=== PATIENT | female | born 1980 | race Native Hawaiian/Other Pacific Islander ===

== ENCOUNTER 2016-06-27 00:16 | Emergency (ER) | payer SELFPAY ==
[2016-06-27 00:56] LABS: Basophils % (Auto) 0.8 % (0.0-1.8); Hematocrit 34.7 % (30.3-42.9); Hemoglobin 11.7 gm/dl (10.1-14.3); Mean Corpuscular HGB Conc 34 % (30-34); Mean Corpuscular Hemoglobin 30 pg (28-32); Mean Corpuscular Volume 89 fl (79-97); Platelet Count 263 K/mm3 (140-440); Red Blood Count 3.89 M/mm3 (3.65-5.03); Red Cell Distribution Width 12.2 % (13.2-15.2); White Blood Count 8.7 K/mm3 (4.5-11.0)
--- NOTE | 2016-06-27 02:38 | Ultrasound Report ---
FINAL REPORT EXAM: US OB TRANSVAGINAL HISTORY: vag bleeding hcg TECHNIQUE: Real time transabdominal and transvaginal pelvic ultrasound. Initially, transabdominal scanning was performed. Subsequently, transvaginal scanning was performed to better evaluate the uterus and ovaries. PRIORS: None FINDINGS: Uterus measures 12 x 7.3 x 9.1 cm. No intrauterine gestation identified. Endometrium is thickened measuring 4.2 cm in maximal thickness. Diffusely heterogeneous appearing endometrium, with numerous cystic foci throughout. Endometrium not particularly vascular. The ovaries cannot be seen. No free fluid. Nabothian cyst noted in the cervix. IMPRESSION: 1. Findings are most suggestive of gestational trophoblastic disease (molar ).
--- NOTE | 2016-06-27 02:38 | Ultrasound Report ---
FINAL REPORT EXAM: US OB < = 14 WEEKS FETUS HISTORY: vag bleeding hcg TECHNIQUE: Real time transabdominal and transvaginal pelvic ultrasound. Initially, transabdominal scanning was performed. Subsequently, transvaginal scanning was performed to better evaluate the uterus and ovaries. PRIORS: None FINDINGS: Uterus measures 12 x 7.3 x 9.1 cm. No intrauterine gestation identified. Endometrium is thickened measuring 4.2 cm in maximal thickness. Diffusely heterogeneous appearing endometrium, with numerous cystic foci throughout. Endometrium not particularly vascular. The ovaries cannot be seen. No free fluid. Nabothian cyst noted in the cervix. IMPRESSION: 1. Findings are most suggestive of gestational trophoblastic disease (molar ).
[2016-06-27] MEDS ORDERED: NORCO 5/325 PO ONE (02:46)
--- NOTE | 2016-06-27 02:49 | Emergency Department Report ---
ED HPI - General Chief complaint: Vaginal Bleeding Stated complaint: VAGINAL BLEEDING Time Seen by Provider: 06/27/16 00:45 Source: patient, old records reviewed (first ED visit) Mode of arrival: Wheelchair Limitations: No Limitations, Language Barrier - History of Present Illness Initial comments: 35 year old female with no significant past medical history presents to the hospital complains of vaginal bleeding that started 30 minutes prior to arrival. Positive associated 10/10 lower crampy abdominal pain that is intermittent. Patient reports that she was diagnosed with a molar had a D&C 1 month ago. Despite this her hCG levels continue to trend upward. She last saw her [employer]ILER doctor on June 22 and was told that she will likely need additional treatment since levels are not decreasing. She is unsure what the treatment was. She was told to come to the ER if symptoms worsened. Patient sees a nurse practitioner associated with Dr. Yoni Ramos - Related Data Previous Rx's Medication Instructions Recorded Last Taken Type HYDROcodone/APAP 5-325 [[place] 1 each PO Q6HR PRN #20 tablet 06/27/16 Unknown Rx 5/325] Promethazine [Phenergan TAB] 25 mg PO Q6HR PRN #30 tab 06/27/16 Unknown Rx Allergies Allergy/AdvReac Type Severity Reaction Status Date / Time No Known Allergies Allergy Verified 06/27/16 00:38 ED Review of Systems ROS: Stated complaint: VAGINAL BLEEDING Other details as noted in HPI Comment: All other systems reviewed and negative Other: Constitutional: No fevers chills or weight loss Eyes: No eye pain visual changes or discharge ENT: No ear pain or throat pain Neck: Denies pain Respiratory: Denies cough wheezing shortness of breath Cardiovascular: Denies chest pain, palpitations, syncope GI: As per HPI : Vaginal bleeding Musculoskeletal: Denies back pain Skin: Denies rash, lesions, erythema Neurologic: Denies headache, numbness, weakness Psychiatric: Denies suicidal ideation, hallucinations Hematological/lymphatic: Denies easy bruising, lymphadenopathy ED Past Medical Hx - Past Medical History Previous Medical History?: No - Surgical History Past Surgical History?: Yes Additional Surgical History: D&C X 4 weeks now here in [facility] - Social History Smoking Status: Never Smoker Substance Use Type: None - Medications Home Medications: Home Medications Medication Instructions Recorded Confirmed Last Taken Type HYDROcodone/APAP 5-325 [[place] 1 each PO Q6HR PRN #20 tablet 06/27/16 Unknown Rx 5/325] Promethazine [Phenergan TAB] 25 mg PO Q6HR PRN #30 tab 06/27/16 Unknown Rx ED Physical Exam - General Limitations: No Limitations, Language Barrier - Other Other exam information: General: No limitations, patient is alert in no acute distress Head exam: Atraumatic, normocephalic Eyes exam: Normal appearance, pupils equal reactive to light, extraocular movements intact ENT: Moist mucous membrane, normal oropharynx Neck exam: Normal inspection, full range of motion, no meningismus nontender Respiratory exam: Clear to auscultation bilateral, no wheezes, rales, crackles Cardiovascular: Normal rate and rhythm, normal heart sounds Abdomen: Soft, nondistended, suprapubic tenderness, with normal bowel sounds, no rebound, or guarding : Moderate blood in the vault, os closed, mild uterine tenderness Extremity: Full range of motion normal inspection no deformity Back: Normal Inspection, full range of motion, no tenderness Neurologic: Alert, oriented x3, cranial nerves intact, no motor or sensory deficit Psychiatric: normal affect, normal mood Skin: Warm, dry, intact ED Course Vital Signs 06/27/16 06/27/16 06/27/16 00:19 01:20 01:30 Temperature 98.1 F Pulse Rate 68 62 67 Respiratory 18 20 22 Rate Blood Pressure 129/74 114/67 Blood Pressure [Left] Blood Pressure 129/74 [Right] O2 Sat by Pulse 99 97 Oximetry 06/27/16 06/27/16 06/27/16 01:31 01:33 01:40 Temperature 98.2 F Pulse Rate 66 68 Respiratory 18 18 24 Rate Blood Pressure 113/62 Blood Pressure 113/62 [Left] Blood Pressure [Right] O2 Sat by Pulse 99 99 100 Oximetry 06/27/16 06/27/16 06/27/16 01:50 01:57 05:32 Temperature Pulse Rate 66 Respiratory 18 18 21 Rate Blood Pressure 113/62 113/62 Blood Pressure [Left] Blood Pressure [Right] O2 Sat by Pulse 100 100 Oximetry 06/27/16 05:34 Temperature Pulse Rate 67 Respiratory 23 Rate Blood Pressure 98/52 Blood Pressure [Left] Blood Pressure [Right] O2 Sat by Pulse 98 Oximetry - Reevaluation(s) Reevaluation #1: 06/27/16 05:19 Patient reports that pain improved with Luttrell and Zofran. - Consultations Consultation #1: 06/27/16 05:17 Dr. Yoni Ramos service paged at 2:48. After 1 hour of no response I paged Dr. Matta director of food and nutrition services for [facility] [employer]. Apparently Dr. Leandra Ramos is director of food and nutrition services and has been in surgery. I received call back from Dr Gianni Ramos at 5:05 AM. Still awaiting disposition planning regarding this patient. 06/27/16 05:18 Consultation #2: 06/27/16 05:40 received call back, f/u in office today to schedule surgery ED Medical Decision Making - Lab Data Result diagrams: 06/27/16 00:44 Lab Results 06/27/16 06/27/16 06/27/16 Range/Units 00:44 00:44 00:44 WBC 8.7 (4.5-11.0) K/mm3 RBC 3.89 (3.65-5.03) M/mm3 Hgb 11.7 (10.1-14.3) gm/dl Hct 34.7 (30.3-42.9) % MCV 89 (79-97) fl MCH 30 (28-32) pg MCHC 34 (30-34) % RDW 12.2 L (13.2-15.2) % Plt Count 263 (140-440) K/mm3 Lymph % (Auto) 27.3 (13.4-35.0) % [place] % (Auto) 5.8 (0.0-7.3) % Eos % (Auto) 3.0 (0.0-4.3) % Baso % (Auto) 0.8 (0.0-1.8) % Lymph # 2.4 (1.2-5.4) K/mm3 [place] # 0.5 (0.0-0.8) K/mm3 Eos # 0.3 (0.0-0.4) K/mm3 Baso # 0.1 (0.0-0.1) K/mm3 Seg Neutrophils % 63.1 (40.0-70.0) % Seg Neutrophils # 5.5 (1.8-7.7) K/mm3 HCG, Quant 328815 H (0-4) mIU/mL Urine Color (Yellow) Urine Turbidity (Clear) Urine pH (5.0-7.0) Ur Specific [place] (1.003-1.030) Urine Protein (Negative) mg/dL Urine Glucose (UA) (Negative) mg/dL Urine Ketones (Negative) mg/dL Urine Blood (Negative) Urine Nitrite (Negative) Urine Bilirubin (Negative) Urine Urobilinogen (<2.0) mg/dL Ur Leukocyte Esterase (Negative) Urine WBC (Auto) (0.0-6.0) /HPF Urine RBC (Auto) (0.0-6.0) /HPF U Epithel Cells (Auto) (0-13.0) /HPF Urine Bacteria (Auto) (Negative) /HPF Blood Type O POSITIVE Antibody Screen Negative 06/27/16 Range/Units Unknown WBC (4.5-11.0) K/mm3 RBC (3.65-5.03) M/mm3 Hgb (10.1-14.3) gm/dl Hct (30.3-42.9) % MCV (79-97) fl MCH (28-32) pg MCHC (30-34) % RDW (13.2-15.2) % Plt Count (140-440) K/mm3 Lymph % (Auto) (13.4-35.0) % [place] % (Auto) (0.0-7.3) % Eos % (Auto) (0.0-4.3) % Baso % (Auto) (0.0-1.8) % Lymph # (1.2-5.4) K/mm3 [place] # (0.0-0.8) K/mm3 Eos # (0.0-0.4) K/mm3 Baso # (0.0-0.1) K/mm3 Seg Neutrophils % (40.0-70.0) % Seg Neutrophils # (1.8-7.7) K/mm3 HCG, Quant (0-4) mIU/mL Urine Color Straw (Yellow) Urine Turbidity Clear (Clear) Urine pH 6.0 (5.0-7.0) Ur Specific [place] 1.008 (1.003-1.030) Urine Protein <15 mg/dl (Negative) mg/dL Urine Glucose (UA) Neg (Negative) mg/dL Urine Ketones Neg (Negative) mg/dL Urine Blood Lg (Negative) Urine Nitrite Neg (Negative) Urine Bilirubin Neg (Negative) Urine Urobilinogen < 2.0 (<2.0) mg/dL Ur Leukocyte Esterase Tr (Negative) Urine WBC (Auto) 2.0 (0.0-6.0) /HPF Urine RBC (Auto) 11.0 (0.0-6.0) /HPF U Epithel Cells (Auto) < 1.0 (0-13.0) /HPF Urine Bacteria (Auto) 1+ (Negative) /HPF Blood Type Antibody Screen wet prep neg - Radiology Data Radiology results: report reviewed Transvaginal/pelvic ultrasound: Gestational trophoblastic disease (molar ) - Differential Diagnosis persistent molar , anemia Critical Care Time: No Critical care attestation.: If time is entered above; I have spent that time in minutes in the direct care of this critically ill patient, excluding procedure time. ED Disposition Clinical Impression: Molar Disposition: DISCHARGED TO HOME OR SELFCARE Is pt being admited?: No Does the pt Need Aspirin: No Condition: Stable Instructions: Menorrhagia (ED) Additional Instructions: Realice el seguimiento esta maana con jasmine mdico gineclogo para programar la ciruga para jasmine embarazo molar. Regresar si el sntoma empeora. Prescriptions: HYDROcodone/APAP 5-325 [Luttrell 5/325] 1 each PO Q6HR PRN #20 tablet PRN Reason: Pain Promethazine [Phenergan TAB] 25 mg PO Q6HR PRN #30 tab PRN Reason: Nausea Referrals: PUMA TILLEY MD [Staff Physician] - MACK ([facility]) Time of Disposition: 06:07 Print Language: MALIAN
[2016-06-27] MEDS ORDERED: ZOFRAN ODT PO ONE (03:04)
[2016-06-27 03:22] LABS: Bacteria,Urine 1+ /HPF (Negative); Bilirubin,Urine NEG (Negative); Blood,Urine LG (Negative); Ketones,Urine NEG (Negative); Leukocyte Esterase,Urine TR (Negative); Nitrite,Urine NEG (Negative); Protein,Urine <15 mg/dL mg/dL (Negative); Urobilinogen,Urine < 2.0 mg/dL (<2.0)
[2016-06-27 06:38] VITALS: BP 106/55
== END 2016-06-27 06:45 | disposition home or self-care (01) ==
LOC: ED 00:16
DX: O02.0 Blighted ovum and nonhydatidiform mole (principal); Z3A.00 Weeks of gestation of pregnancy not specified
CPT/HCPCS: 36415; 76801; 76817; 81001; 84702; 85025; 86850; 86900; 86901; 87210; 87591; Q0162

== ENCOUNTER 2016-07-12 05:50 | Emergency (ER) | payer SELFPAY ==
[2016-07-12 06:27] LABS: Hemoglobin 10.5 gm/dl (10.1-14.3); Mean Corpuscular HGB Conc 34 % (30-34); Mean Corpuscular Hemoglobin 29 pg (28-32); Mean Corpuscular Volume 87 fl (79-97); Platelet Count 280 K/mm3 (140-440); Red Blood Count 3.57 M/mm3 (3.65-5.03); Red Cell Distribution Width 12.4 % (13.2-15.2); White Blood Count 9.3 K/mm3 (4.5-11.0)
--- NOTE | 2016-07-12 07:03 | Emergency Department Report ---
ED Female HPI - General Stated complaint: VAG BLEED Time Seen by Provider: 07/12/16 06:10 Source: patient, old records reviewed Limitations: Language Barrier (language line [id number]) - History of Present Illness Initial comments: 35-year-old female with a recent diagnosis of molar presents to the hospital with complaints of heavy vaginal bleeding that started about 5 AM. Patient states she has bled liters of blood and has suprapubic cramping intermittent abdominal pain that is moderate in intensity. No reports of syncope, chest pain, or shortness of breath. Patient has been previously seen by me on July 07 for similar complaint. Ultrasound confirmed molar at that time. Patient follow-up with her [employer] OFFICER as instructed and was subsequently referred to a specialist. Patient has an appointment with the specialist today but came here because of the heavy vaginal bleeding that worsened this morning. - Related Data Previous Rx's Medication Instructions Recorded Last Taken Type HYDROcodone/APAP 5-325 [[place] 1 each PO Q6HR PRN #20 tablet 06/27/16 Unknown Rx 5/325] Promethazine [Phenergan TAB] 25 mg PO Q6HR PRN #30 tab 06/27/16 Unknown Rx Allergies Allergy/AdvReac Type Severity Reaction Status Date / Time No Known Allergies Allergy Verified 06/27/16 00:38 ED Review of Systems ROS: Stated complaint: VAG BLEED Other details as noted in HPI Comment: All other systems reviewed and negative Other: Constitutional: No fevers Neck: Denies pain Respiratory: Denies cough wheezing shortness of breath Cardiovascular: Denies chest pain GI: as per hpi : Denies dysuria Musculoskeletal: Denies back pain Skin: Denies rash Neurologic: Denies headache Psychiatric: Denies suicidal ideation, hallucinations ED Past Medical Hx - Surgical History Additional Surgical History: D&C X 4 weeks now here in [facility] - Social History Smoking Status: Never Smoker Substance Use Type: None - Medications Home Medications: Home Medications Medication Instructions Recorded Confirmed Last Taken Type HYDROcodone/APAP 5-325 [[place] 1 each PO Q6HR PRN #20 tablet 06/27/16 Unknown Rx 5/325] Promethazine [Phenergan TAB] 25 mg PO Q6HR PRN #30 tab 06/27/16 Unknown Rx ED Physical Exam - Other Other exam information: General: No limitations, patient is alert in no acute distress Head exam: Atraumatic, normocephalic Eyes exam: Normal appearancect ENT: Moist mucous membrane, normal oropharynx Neck exam: Normal inspection, full range of motion, no meningismus nontender Respiratory exam: Clear to auscultation bilateral, no wheezes, rales, crackles Cardiovascular: Normal rate and rhythm, normal heart sounds Abdomen: Soft, nondistended, mild suprapubic tenderness, with normal bowel sounds, no rebound, or guarding Extremity: Full range of motion normal inspection no deformity, dry blood on legs Back: Normal Inspection, full range of motion, no tenderness Neurologic: Alert, oriented x3, cranial nerves intact, no motor or sensory deficit Psychiatric: normal affect, normal mood Skin: Warm, dry, intact ED Medical Decision Making - Lab Data Result diagrams: 07/12/16 06:14 Lab Results 07/12/16 07/12/16 Range/Units 06:14 06:14 WBC 9.3 (4.5-11.0) K/mm3 RBC 3.57 L (3.65-5.03) M/mm3 Hgb 10.5 (10.1-14.3) gm/dl Hct 31.0 (30.3-42.9) % MCV 87 (79-97) fl MCH 29 (28-32) pg MCHC 34 (30-34) % RDW 12.4 L (13.2-15.2) % Plt Count 280 (140-440) K/mm3 HCG, Quant 655015 H (0-4) mIU/mL - Medical Decision Making HCg level continues to increase. Patient appears to be frustrated that she has been to the ER twice now and her problem has not been resolved. I explained to her that in the ER we make sure that her blood pressure and heart rate are normal as well as her hemoglobin in the setting of vaginal bleeding. Surgery for her molar is at the discretion of the AIR DEFENSE CONTR[employer] OFFICER doctor in [employer]IC[employer] specialist. I requested the name of her specialist so that I may contact them to have a conversation regarding her concerns. Patient did not provide a contact information for her AIR DEFENSE CONTROL OFFICER and states she wants to go home. She states she will take pictures of the blood as evidence. I explained to her that I believe that she is bleeding but as of now her hemoglobin and blood pressure are stable however, given her history and current condition I want the opportunity to discuss this case with AIR DEFENSE CONTROL OFFICER prior to discharge. Patient is signing out AGAINST MEDICAL ADVICE since she does not want to provide this information or wait for this consultation and she wants to go home. I offered her a copy of her laboratory results to take to her specialist appointment today. Initially it is a copy of the lab results from today stating that her doctors are and he has results in the office. I then further explained that in the setting of vaginal bleeding and acute blood loss with a hemoglobin from today will be important. She has now excepted to receive the lab results This complete discussion was had with flash welding machine operator [id number] to the language line - Differential Diagnosis molar , anemia Critical Care Time: No Critical care attestation.: If time is entered above; I have spent that time in minutes in the direct care of this critically ill patient, excluding procedure time. ED Disposition Clinical Impression: Molar , Episode of heavy vaginal bleeding Disposition: LEFT AGAINST MEDICAL ADVICE Is pt being admited?: No Does the pt Need Aspirin: No Condition: Stable Instructions: Menorrhagia (ED) Additional Instructions: You have refused to wait for the case to be discussed with her [employer] DEFENSE CONTR[employer] OFFICER doctor/ specialist to determine if discharge is the appropriate plan given your heavy vaginal bleeding. At this time you have a normal blood pressure and a normal hemoglobin/blood count level however, this may change with further bleeding. Follow up with your doctor today as scheduled. These return if symptoms worsen. Usted se lyn negado a esperar que el lonnie sea discutido con jasmine mdico o especialista en [employer] DEF[employer] CONTR[employer] OFFICER para determinar si el jeremias es el plan apropiado dado jasmine sangrado vaginal pesado. En everette momento tiene bernardo presin arterial normal y un nivel de hemoglobina / hemograma normal, sin embargo, esto puede cambiar con sangrado adicional. Gamaliel el seguimiento con jasmine mdparveen cornelius segn lo programado. Estos regresan si los sntomas empeoran. Referrals: your, specialist [Other] - MACK (today (ashli)) Forms: AMA Form Time of Disposition: 07:11 Print Language: NIGERIEN
[2016-07-12 07:20] VITALS: BP 134/80
== END 2016-07-12 07:10 | disposition left against medical advice (07) ==
LOC: ED 05:50
DX: O02.0 Blighted ovum and nonhydatidiform mole (principal); O20.9 Hemorrhage in early pregnancy, unspecified; Z3A.00 Weeks of gestation of pregnancy not specified
CPT/HCPCS: 36415; 84702; 85027; 99283

== ENCOUNTER 2016-07-26 14:19 | Inpatient (IN) | payer SELFPAY ==
[2016-07-26] MEDS ORDERED: NACL 0.9% 1000 ML 1,000 ML ONE (14:46)
[2016-07-26] MEDS ORDERED: NACL 0.9% 1000 ML 1,000 ML IV ONE (15:07)
[2016-07-26 15:42] LABS: Basophils % (Auto) 0.6 % (0.0-1.8); Eosinophils % (Auto) 1.3 % (0.0-4.3); Hemoglobin 7.3 gm/dl (10.1-14.3); Mean Corpuscular HGB Conc 33 % (30-34); Mean Corpuscular Hemoglobin 28 pg (28-32); Mean Corpuscular Volume 83 fl (79-97); Platelet Count 304 K/mm3 (140-440); Red Blood Count 2.64 M/mm3 (3.65-5.03); Red Cell Distribution Width 13.5 % (13.2-15.2); White Blood Count 10.4 K/mm3 (4.5-11.0)
--- NOTE | 2016-07-26 17:04 | Emergency Department Report ---
HPI - General Chief Complaint: Vaginal Bleeding Time Seen by Provider: 07/26/16 16:52 - [facility] HPI: Room 8 The patient is a 35-year-old female presenting with a chief complaint of vaginal bleeding. The patient was reportedly diagnosed with a molar . The patient states she was in her usual state of health until this afternoon at 13:00 she had copious vaginal bleeding. Patient states blood was soaking through her clothes. The patient states she did not have time to use tampons. Patient states she also developed lower abdominal pain at the same time. The patient is to nausea and vomiting. The patient gives her pain a score of 8/10. Patient complains of slight dizziness but denies shortness of breath or chest pain Location: Pelvis Duration: [see above] Quality: Pain Severity:8/10 Modifying factors: [see above] Context: [see above] Mode of transportation: [not driving] ED Past Medical Hx - Past Medical History Previous Medical History?: No - Surgical History Past Surgical History?: Yes Additional Surgical History: D&C X 4 weeks now here in [facility] - Family History Family history: no significant - Social History Smoking Status: Never Smoker Substance Use Type: Alcohol (occasional) - Medications Home Medications: Home Medications Medication Instructions Recorded Confirmed Last Taken Type HYDROcodone/APAP 5-325 [[place] 1 each PO Q6HR PRN #20 tablet 06/27/16 Unknown Rx 5/325] Promethazine [Phenergan TAB] 25 mg PO Q6HR PRN #30 tab 06/27/16 Unknown Rx ED Review of Systems ROS: Stated complaint: VAG BLEEDING Other details as noted in HPI Comment: All other systems reviewed and negative Constitutional: denies: chills, fever Eyes: denies: eye pain, eye discharge, vision change ENT: denies: ear pain, throat pain Respiratory: denies: cough, shortness of breath, wheezing Cardiovascular: denies: chest pain, palpitations Endocrine: no symptoms reported Gastrointestinal: abdominal pain, nausea, vomiting Genitourinary: abnormal menses Musculoskeletal: denies: back pain, joint swelling, arthralgia Skin: denies: rash, lesions Neurological: denies: headache, weakness, paresthesias Psychiatric: denies: anxiety, depression Hematological/Lymphatic: denies: easy bleeding, easy bruising Physical Exam - Physical Exam Vital Signs: Vital Signs 07/26/16 07/26/16 07/26/16 14:21 14:32 14:40 Temperature 97.6 F Pulse Rate 124 H 91 H 101 H Respiratory 18 27 H 24 Rate Blood Pressure 112/81 121/80 O2 Sat by Pulse 100 95 99 Oximetry 07/26/16 07/26/16 14:50 15:00 Temperature Pulse Rate 100 H 96 H Respiratory 34 H 26 H Rate Blood Pressure 117/78 126/82 O2 Sat by Pulse 99 99 Oximetry Physical Exam: GENERAL: The patient is well-developed well-nourished female lying on stretcher appearing to be in mild discomfort. [] HEENT: Normocephalic. Atraumatic. Extraocular motions are intact. Patient has moist mucous membranes. NECK: Supple. Trachea midline CHEST/LUNGS: Clear to auscultation. There is no respiratory distress noted. HEART/CARDIOVASCULAR: Regular. There is no tachycardia. There is no gallop rub or murmur. ABDOMEN: Abdomen is soft, with lower abdominal tenderness palpation. There is no rebound or guarding. Patient has normal bowel sounds. There is no abdominal distention. SKIN: There is no rash. There is no edema. There is no diaphoresis. NEURO: The patient is awake, alert, and oriented. The patient is cooperative. The patient has normal speech MUSCULOSKELETAL: There is no evidence of acute injury. ED Course Vital Signs 07/26/16 07/26/16 07/26/16 14:21 14:32 14:40 Temperature 97.6 F Pulse Rate 124 H 91 H 101 H Respiratory 18 27 H 24 Rate Blood Pressure 112/81 121/80 O2 Sat by Pulse 100 95 99 Oximetry 07/26/16 07/26/16 14:50 15:00 Temperature Pulse Rate 100 H 96 H Respiratory 34 H 26 H Rate Blood Pressure 117/78 126/82 O2 Sat by Pulse 99 99 Oximetry - Consultations Consultation #1: 07/26/16 17:00 Dr. Layton Enrique paged- discussed with Dr. Enrique. States that the patient has been to multiple emergency departments within the past few weeks. The patient has been admonished to only follow-up with [facility] for this issue. Dr. Enrique recommends patient receive a blood transfusion and be strongly encouraged to follow-up with them to initiate chemotherapy for her molar 07/26/16 17:16 02/07/17 17:18 Consultation #2: 07/26/16 17:16 MAGNETIC HEALER paged-case discussed with Dr. Barrios- agrees with admission to the hospital by hospitalist and blood transfusion 07/26/16 17:17 ED Medical Decision Making - Lab Data Result diagrams: 07/26/16 15:10 Laboratory Tests 07/26/16 07/26/16 07/26/16 15:10 15:10 15:20 WBC 10.4 RBC 2.64 L Hgb 7.3 L Hct 22.0 L MCV 83 MCH 28 MCHC 33 RDW 13.5 Plt Count 304 Lymph % (Auto) 14.8 [place] % (Auto) 8.3 H Eos % (Auto) 1.3 Baso % (Auto) 0.6 Lymph # 1.5 [place] # 0.9 H Eos # 0.1 Baso # 0.1 Seg Neutrophils % 75.0 H Seg Neutrophils # 7.8 H HCG, Quant [id number] H Blood Type O POSITIVE Antibody Screen Negative Crossmatch See Detail - Radiology Data Radiology results: report reviewed (ultrasound from 06/27/2016) Pelvic ultrasound from 06/27/2016-findings are most suggestive of gestational trophoblastic disease (molar ). - Differential Diagnosis molar , symptomatic anemia Critical care attestation.: If time is entered above; I have spent that time in minutes in the direct care of this critically ill patient, excluding procedure time. ED Disposition Clinical Impression: Molar , Episode of heavy vaginal bleeding, Symptomatic anemia Disposition: OP ADMITTED IP TO THIS HOSP Is pt being admited?: Yes Does the pt Need Aspirin: No Condition: Fair Referrals: PRIMARY CARE, [Primary Care Provider] - 3-5 Days Time of Disposition: 17:22 (hospitalist paged)
[2016-07-26] MEDS ORDERED: NACL 0.9% 500 ML 500 ML IV SCH (17:15)
[2016-07-26] MEDS ORDERED: ZOFRAN IV ONE ×2 (17:16→20:36)
[2016-07-26] MEDS ORDERED: SUBLIMAZE IV ONE (17:16)
--- NOTE | 2016-07-26 17:47 | Admit Criteria Form ---
Admission Criteria Documentation: OBSTETRIC AND GYNECOLOGIC DISEASE GRG Clinical Indications for Admission to Inpatient Care (Place 'X' for any and all applicable criteria): Hospital admission is needed for appropriate care of the patient because of ANY ONE of the following (1)(2)(3): [ ]I. Hemodynamic instability, as indicated by ALL of the following (1)(2)(3)( 4)(5): [ ]a) Vital signs or other findings not as expected for chronic patient condition or baseline [ ]b) Instability indicated by ANY ONE of the following: [ ]i) Hypotension [ ]ii) Symptomatic tachycardia unresponsive to treatment (eg, analgesia, fluids, sedation as indicated) [ ]iii) Inadequate perfusion indicated by ANY ONE of the following: [ ]A. Lactic acidosis (greater than 2 mmol/ L) [ ]B. New abnormal capillary refill ( greater than 3 seconds) [ ]C. Reduced urine output [ ]D. New altered mental status [ ]iv) Orthostatic vital sign changes unresponsive to treatment (eg, fluids) [ ]v) Multiple IV fluid boluses required to maintain adequate blood pressure or perfusion [ ]vi) IV inotropic or vasopressor medication required to maintain adequate blood pressure or perfusion [ ]II. Obstetric infection requiring hospitalization indicated by ANY ONE of the following(13)(14): [ ]a) Chorioamnionitis [ ]b) Endometritis (except mild endometritis) [ ]c) Pelvic abscess [ ]d) Peritonitis [ ]e) Septic pelvic thrombophlebitis [ ]III. Amniotic fluid or pulmonary embolism(4)(5)(6) [ ]IV. Suspected peritonitis or ectopic requiring monitoring beyond scope of 24 hours or observation care(7)(8) [ ]V. compromise requiring hospitalization indicated by ALL of the following(9)(10): [ ]a) compromise indicated by ANY ONE of the following(11): [ ]i) Abnormal heart rate monitoring [ ]ii) Abnormal contraction stress test [ ]iii) Abnormal biophysical profile [ ]iv) Abnormal Doppler flow in vessels (ie, Doppler velocimetry) (12) [ ]b) Persistence of compromise indicators during evaluation and observation monitoring [ ]. Ovarian hyperstimulation syndrome requiring hospitalization[A] indicated by ALL of the following(15): [ ]a) Recent ovarian stimulation with gonadotropins, or evidence on ultrasound of spontaneous emergence of large number of ovarian follicles [ ]b) Evidence of severe ovarian hyperstimulation syndrome indicated by ANY ONE of the following: [ ]i) Abdominal pain unresponsive to oral therapy [ ]ii) Acute respiratory distress syndrome [ ]iii) Electrolyte imbalance ( eg, hyponatremia, hyperkalemia) [ ]iv) Elevated liver enzymes [ ]v) Evidence of thromboembolism [ ]vi) Hemoconcentration (hematocrit greater than 45 % (0.45)) [ ]vii) Inability to maintain oral intake adequate to prevent hemoconcentration [ ]viii) Marked hypotension from baseline (eg, SBP 20 mmHg below patients usual pressure) [ ]ix) Oliguria or anuria [ ]x) Ovarian torsion [ ]xi) Pleural or pericardial effusion on x-ray or echocardiogram [ ]xii) Rapid increase in serum creatinine to greater than 1.2 mg/dL (106 micromoles/L) or creatinine clearance less than 50 mL/min/1.73m2 (0.84 mL/ sec/1.73m2) [ ]xiii) Ruptured ovarian cyst with hemorrhage [ ]xiv) Severe abdominal pain or peritoneal signs [ ]xv) Tense ascites that cannot be managed with paracentesis in outpatient setting [ ]VII.Pelvic infection requiring hospitalization indicated by ANY ONE of the following (16): [ ]a) Outpatient treatment has failed or is not appropriate (eg, inpatient monitoring required) [ ]b) Pelvic abscess [ ]c) Surgical emergency cannot be excluded (eg, rigid abdomen) [ ]d) Vomiting precluding outpatient and observation care management VIII. loss complications requiring inpatient medical treatment indicated by ANY ONE of the following (4)(7)(9): [ ]a) Fever [ ]b) Peritonitis [ ]c) Sepsis [ ]d) Severe abdominal pain [ ]IX. or patient requiring monitoring for severe heart failure, pulmonary disease, or other comorbid condition (eg, peripartum cardiomyopathy) (4)(17) [ ]X. patient with rupture of membranes requiring hospitalization indicated by ANY ONE of the following: [ ]a) Chorioamnionitis, cloudy amniotic fluid, or other evidence of infection [ ]b) compromise or other need for monitoring (11) [ ]c) Gestation longer than 23 weeks and ANY ONE of the following: [ ]i) Abnormal (noncephalic) presentation [ ]ii) Inadequate home environment (eg, home too far from hospital, unable to rapidly return to hospital) [ ]d) Temperature greater than 100.4 degrees F (38 degrees C)( oral) [ ]e) Threatened labor requiring monitoring beyond scope (eg, over 24 hours) of observation Care [ ] XI. complications, including severe lacerations, infections, or retained placenta (19) [X ] XII.Uterine bleeding with high-risk features indicated by ANY ONE of the following (4): [ ]a) Active major hemorrhage (eg, hemorrhage) [ ]b) Coagulopathy with active bleeding [X ]c) Gestational trophoblastic disease (eg, molar ) ( 20) [ ]d) (longer than 23 weeks) and ANY ONE of the following: [ ]i) Pain [ ]ii) Placental abruption, known or suspected [ ]iii) Placenta accrete, known or suspected(21) [ ]iv) Placenta previa, known or suspected [ ]v) Vasa previa [ ]e) Severe anemia [ ]XIII. Obstetric or Gynecologic Disease, condition or symptom for which ANY ONE of the following: [ ]a) Emergency and observation care have failed or are not considered appropriate ( Also use General Criteria: Observation Care Criteria as appropriate) [ ]b) Presence of a General Admission Criteria or Pediatric General Admission Criteria The original [facility] [employer] content created by [facility] has been revised. The portions of the content which have been revised are identified through the use of italic text or in bold, and [facility] has neither reviewed nor approved the modified material.All other unmodified content is copyright [facility]. Please see references footnoted in the original [facility] edition 2016 Admission Criteria Met: Yes
[2016-07-26] MEDS ORDERED: DILAUDID IV ONE (20:35)
--- NOTE | 2016-07-26 21:17 | History and Physical Report ---
History of Present Illness Date of examination: 07/26/16 Date of admission: 07/26/16 17:29 Chief complaint: 07/26/16 Excessive Vaginal bleeding for one day. Feels weak Depression History of present illness: Excessive vaginalbleeding for one day. Feels weak.Patient diagnosed with Gestational trophoblastic disease.Due for chemo on by Dr Enrique. Past History Past Medical History: No medical history Past Surgical History: No surgical history Social history: lives with family Family history: no significant family history Medications and Allergies Allergies Allergy/AdvReac Type Severity Reaction Status Date / Time No Known Allergies Allergy Verified 06/27/16 00:38 Home Medications Medication Instructions Recorded Confirmed Last Taken Type HYDROcodone/APAP 5-325 [[place] 1 each PO Q6HR PRN #20 tablet 06/27/16 Unknown Rx 5/325] Promethazine [Phenergan TAB] 25 mg PO Q6HR PRN #30 tab 06/27/16 Unknown Rx Active Meds: Active Medications Sodium Chloride (Nacl 0.9% 500 Ml) 500 mls @ 0 mls/hr IV ONCE SCARLETT PRN Reason: As Directed Stop: 07/27/16 06:00 Influenza Virus Vaccine Quadrival (Fluarix Quad [id number](36 Mos+)) 60 mcg IM .ONCE ONE Stop: 07/27/16 12:01 Review of Systems All systems: negative Constitutional: fatigue, weakness Exam - Constitutional Vitals: Temp Pulse Resp BP Pulse Ox 98.0 F 79 18 118/66 99 07/26/16 18:25 07/26/16 18:25 07/26/16 18:25 07/26/16 18:25 07/26/16 18:25 General appearance: Present: no acute distress, well-nourished - EENT Eyes: Present: PERRL ENT: hearing intact, clear oral mucosa - Neck Neck: Present: supple, normal ROM - Respiratory Respiratory effort: normal Respiratory: bilateral: CTA - Cardiovascular Heart Sounds: Present: S1 & S2. Absent: rub, click - Extremities Extremities: pulses symmetrical, No edema Peripheral Pulses: within normal limits - Abdominal General gastrointestinal: Present: soft, non-tender, non-distended, normal bowel sounds Female genitourinary: Present: normal - Integumentary Integumentary: Present: clear, warm, dry - Musculoskeletal Musculoskeletal: gait normal, strength equal bilaterally - Psychiatric Psychiatric: appropriate mood/affect, intact judgment & insight - Neurologic Neurologic: CNII-XII intact, moves all extremities Results - Labs CBC & Chem 7: 07/26/16 15:10 Labs: Short CBC 07/26/16 Range/Units 15:10 WBC 10.4 (4.5-11.0) K/mm3 Hgb 7.3 L (10.1-14.3) gm/dl Hct 22.0 L (30.3-42.9) % Plt Count 304 (140-440) K/mm3 Assessment and Plan - Patient Problems (1) Symptomatic anemia Current Visit: Yes Status: Acute Plan to address problem: Sec to vaginal bleeding.Transfuse 2 units of PRBC Patient has Gestational Trophoblastic disease (2) Episode of heavy vaginal bleeding Current Visit: Yes Status: Acute Plan to address problem: X Ray Examiner Of Aircraft consulted (3) Gestational trophoblastic disease Current Visit: Yes Status: Acute Plan to address problem: Due for chemo on (4) Depression Current Visit: Yes Status: Acute Qualifiers: Depression Type: reactive depression Major depression recurrence: M Active/Remission status: A Major depression episode severity: M Psychotic features: P Trimester: T Qualified Code(s): F32.9 - Major depressive disorder, single episode, unspecified Plan to address problem: MH consulted (5) Discharge planning issues Current Visit: Yes Status: Acute Plan to address problem: Patient may be discharged after 2 units of PRBC to f/u with Dr Enrique on
[2016-07-26] MEDS: PROTONIX IV SCH (21:33)
--- NOTE | 2016-07-27 01:57 | Consultation ---
History of Present Illness Consult date: 07/27/16 Reason for consult: other (Vaginal bleeding) History of present illness: To see this 35-year-old who has known gestational trophoblastic disease; she is well knwn to Dr Enrique ([facility]) and apparently has chemo scheduled for . Patient with onset of vaginal bleeding with clots, H/H was 7.3/22 on admission. She is currently receiving 2 units packed red blood cells Per RN, pt passed a large clot earlier but currently has mild oozing on my exam. Vitals are stable She is a [place] speaker so history is difficult to obtain Medications and Allergies Allergies Allergy/AdvReac Type Severity Reaction Status Date / Time No Known Allergies Allergy Verified 06/27/16 00:38 Home Medications Medication Instructions Recorded Confirmed Last Taken Type HYDROcodone/APAP 5-325 [[place] 1 each PO Q6HR PRN #20 tablet 06/27/16 Unknown Rx 5/325] Promethazine [Phenergan TAB] 25 mg PO Q6HR PRN #30 tab 06/27/16 Unknown Rx Active Meds: Active Medications Hydromorphone HCl (Dilaudid) 1 mg IV Q3H PRN PRN Reason: Pain , Severe (7-10) Sodium Chloride (Nacl 0.9% 500 Ml) 500 mls @ 0 mls/hr IV ONCE SCARLETT PRN Reason: As Directed Stop: 07/27/16 06:00 Last Admin: 07/26/16 22:33 Dose: 42 mls/hr Influenza Virus Vaccine Quadrival (Fluarix Quad [id number](36 Mos+)) 60 mcg IM .ONCE ONE Stop: 07/27/16 12:01 Ondansetron HCl (Zofran) 4 mg IV Q3H PRN PRN Reason: Nausea And Vomiting Pantoprazole Sodium (Protonix) 40 mg IV BID SCARLETT Last Admin: 07/26/16 21:33 Dose: 40 mg - Vital Signs Vital signs: Vital Signs Temp Pulse Resp BP Pulse Ox 97.6 F 124 H 18 112/81 100 07/26/16 14:21 07/26/16 14:21 07/26/16 14:21 07/26/16 14:21 07/26/16 14:21 Temp Pulse Resp BP Pulse Ox 98.0 F 88 18 135/65 97 07/27/16 01:15 07/27/16 01:15 07/27/16 01:15 07/27/16 01:15 07/27/16 00:45 - Physical Exam Abdomen: Positive: normal appearance, soft, tenderness. Negative: guarding, rigidity Genitourinary (Female): Positive: normal external genitalia Results Result Diagrams: 07/26/16 15:10 All other labs normal. Assessment and Plan A: 35 y/o with GTD -stable P: -Agree with transfusion -Advised pt to follow-up with Management Trainer ONC as recommended for Chemo on -thanks, pls call with questions - Patient Problems (1) Gestational trophoblastic disease Current Visit: Yes Status: Acute
[2016-07-27] MEDS: DILAUDID IV PRN ×4 (01:58→18:26)
[2016-07-27] MEDS: ZOFRAN IV PRN ×3 (01:58→18:08)
[2016-07-27 09:29] LABS: Anion Gap 17 mmol/L; Blood Urea Nitrogen 11 mg/dL (7-17); Calcium 8.1 mg/dL (8.4-10.2); Carbon Dioxide 21 mmol/L (22-30); Chloride 100.2 mmol/L (98-107); Glucose 85 mg/dL (65-100); Potassium 4.2 mmol/L (3.6-5.0); Sodium 134 mmol/L (137-145)
[2016-07-27 09:43] LABS: Platelet Count TNR K/mm3 (140-440)
[2016-07-27 09:44] LABS: Hematocrit TNR % (30.3-42.9); Hemoglobin TNR gm/dl (10.1-14.3); Mean Corpuscular HGB Conc TNR % (30-34); Mean Corpuscular Hemoglobin TNR pg (28-32); Mean Corpuscular Volume TNR fl (79-97); Red Blood Count TNR M/mm3 (3.65-5.03); White Blood Count TNR K/mm3 (4.5-11.0)
[2016-07-27 09:45] LABS: Mean Platelet Volume TNR fl (6-12); Red Cell Distribution Width TNR % (13.2-15.2)
[2016-07-27 09:46] LABS: Basophils % (Auto) TNR % (0.0-1.8); Diff Status TNR; Eosinophils % (Auto) TNR % (0.0-4.3)
[2016-07-27] MEDS: PROTONIX IV SCH ×2 (09:58→21:59)
[2016-07-27] MEDS ORDERED: FLUARIX QUAD 2016-2017(36 MOS+) IM ONE (12:00)
[2016-07-27] MEDS ORDERED: NACL 0.9% 1000 ML 1,000 ML IV SCH (14:00)
[2016-07-27 14:22] LABS: Basophils % (Auto) 0.7 % (0.0-1.8); Eosinophils % (Auto) 2.9 % (0.0-4.3); Hematocrit 24.2 % (30.3-42.9); Mean Corpuscular HGB Conc 33 % (30-34); Mean Corpuscular Hemoglobin 28 pg (28-32); Mean Corpuscular Volume 84 fl (79-97); Platelet Count 222 K/mm3 (140-440); Red Blood Count 2.88 M/mm3 (3.65-5.03); Red Cell Distribution Width 13.8 % (13.2-15.2); White Blood Count 8.7 K/mm3 (4.5-11.0)
--- NOTE | 2016-07-27 16:42 | Progress Note ---
Assessment and Plan Assessment and plan: Patient is a 35-year-old female with recent diagnosis of gestational trophoblastic disease and plan to start chemotherapy presented to the hospital complaining of continued vaginal bleeding with clots with hemoglobin of 7.3 on admission. 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 Welsh at this point vision will continue to bleed until hysterectomy is done or at least chemotherapy started no indication for oncologic to see patient at this point. This has already been set up for outpatient LACQUER SHADER oncologist follow-up. * Continue Zofran and pain control * DVT and GI prophylaxis History Interval history: Follow-up Vaginal bleed Patient seen and examined this morning in no acute distress Denies any chest pain, reports recurrent nausea with vomiting no diarrhea. Reports abdominal pain. No fever noted blood pressure controlled No adverse events reported to me by nursing staff Hospitalist Physical - Physical exam Narrative exam: VITAL SIGNS: Reviewed. GENERAL: The patient appeared well nourished and normally developed otherwise ill appearing. Vital signs as documented. HEAD: No signs of head trauma. EYES: Pupils are equal. Extraocular motions intact. EARS: Hearing grossly intact. MOUTH: Oropharynx is normal. NECK: No adenopathy, no JVD. CHEST: Chest with clear breath sounds bilaterally. No wheezes, rales, or rhonchi. CARDIAC: Regular rate and rhythm. S1 and S2, without murmurs, gallops, or rubs. VASCULAR: No Edema. Peripheral pulses normal and equal in all extremities. ABDOMEN: Soft, without detectable tenderness. No sign of distention. No rebound or guarding, and no masses palpated. Bowel Sounds normal. MUSCULOSKELETAL: Good range of motion of all major joints. Extremities without clubbing, cyanosis or edema. NEUROLOGIC EXAM: Alert and oriented x 3. No focal sensory or strength deficits. Speech normal. Follows commands. PSYCHIATRIC: Mood normal. SKIN: No rash or lesions. - Constitutional Vitals: Temp Pulse Resp BP Pulse Ox 97.9 F 68 16 117/67 96 07/27/16 16:34 07/27/16 16:34 07/27/16 16:34 07/27/16 16:34 07/27/16 08:14 General appearance: Present: no acute distress, well-nourished Results - Labs CBC & Chem 7: 07/28/16 05:09 07/28/16 05:09 Labs: Laboratory Last Values WBC 8.7 K/mm3 (4.5-11.0) 07/27/16 14:04 RBC 2.88 M/mm3 (3.65-5.03) L 07/27/16 14:04 Hgb 8.0 gm/dl (10.1-14.3) L 07/27/16 14:04 Hct 24.2 % (30.3-42.9) L 07/27/16 14:04 MCV 84 fl (79-97) 07/27/16 14:04 MCH 28 pg (28-32) 07/27/16 14:04 MCHC 33 % (30-34) 07/27/16 14:04 RDW 13.8 % (13.2-15.2) 07/27/16 14:04 Plt Count 222 K/mm3 (140-440) 07/27/16 14:04 Lymph % (Auto) 19.8 % (13.4-35.0) 07/27/16 14:04 Kerr % (Auto) 5.8 % (0.0-7.3) 07/27/16 14:04 Eos % (Auto) 2.9 % (0.0-4.3) 07/27/16 14:04 Baso % (Auto) 0.7 % (0.0-1.8) 07/27/16 14:04 Lymph # 1.7 K/mm3 (1.2-5.4) 07/27/16 14:04 Kerr # 0.5 K/mm3 (0.0-0.8) 07/27/16 14:04 Eos # 0.3 K/mm3 (0.0-0.4) 07/27/16 14:04 Baso # 0.1 K/mm3 (0.0-0.1) 07/27/16 14:04 Add Manual Diff TNR 07/27/16 08:58 Seg Neutrophils % 70.8 % (40.0-70.0) H 07/27/16 14:04 Seg Neutrophils # 6.2 K/mm3 (1.8-7.7) 07/27/16 14:04 Sodium 134 mmol/L (137-145) L 07/27/16 08:58 Potassium 4.2 mmol/L (3.6-5.0) 07/27/16 08:58 Chloride 100.2 mmol/L (98-107) 07/27/16 08:58 Carbon Dioxide 21 mmol/L (22-30) L 07/27/16 08:58 Anion Gap 17 mmol/L 07/27/16 08:58 BUN 11 mg/dL (7-17) 07/27/16 08:58 Creatinine 0.5 mg/dL (0.7-1.2) L 07/27/16 08:58 Estimated GFR > 60 ml/min 07/27/16 08:58 BUN/Creatinine Ratio 22.00 % 07/27/16 08:58 Glucose 85 mg/dL (65-100) 07/27/16 08:58 Calcium 8.1 mg/dL (8.4-10.2) L 07/27/16 08:58 HCG, Quant [id number] mIU/mL (0-4) H 07/26/16 15:20 Blood Type O POSITIVE 07/26/16 15:10 Antibody Screen Negative 07/26/16 15:10 Crossmatch See Detail 07/26/16 15:10 - Imaging and Cardiology CT scan - abdomen: image reviewed (molar )
[2016-07-27] MEDS ORDERED: PROTONIX PO SCH (22:00)
[2016-07-28] MEDS ORDERED: NACL ONE (00:21)
[2016-07-28 05:47] LABS: Hemoglobin 7.6 gm/dl (10.1-14.3); Mean Corpuscular HGB Conc 33 % (30-34); Mean Corpuscular Hemoglobin 28 pg (28-32); Mean Corpuscular Volume 84 fl (79-97); Platelet Count 204 K/mm3 (140-440); Red Blood Count 2.74 M/mm3 (3.65-5.03); Red Cell Distribution Width 13.5 % (13.2-15.2); White Blood Count 8.6 K/mm3 (4.5-11.0)
[2016-07-28 06:01] LABS: Anion Gap 15 mmol/L; Blood Urea Nitrogen 11 mg/dL (7-17); Calcium 8.1 mg/dL (8.4-10.2); Carbon Dioxide 23 mmol/L (22-30); Chloride 103.8 mmol/L (98-107); Glucose 84 mg/dL (65-100); Potassium 3.8 mmol/L (3.6-5.0); Sodium 138 mmol/L (137-145)
[2016-07-28] MEDS: ZOFRAN IV PRN (06:47)
[2016-07-28] MEDS ORDERED: NACL 0.9% 500 ML 500 ML IV ONE (06:51)
--- NOTE | 2016-07-28 06:54 | Cat Scan Report ---
FINAL REPORT PROCEDURE: CT ABDOMEN PELVIS W CON TECHNIQUE: Computerized axial tomography of the abdomen and pelvis was performed after the IV injection of iodinated nonionic contrast. HISTORY: Abdominal pain COMPARISON: Obstetrical ultrasound June 27, 2016 FINDINGS: Visualized lower thorax: Atelectasis identified in both lower lungs. Liver: Normal size and attenuation. Spleen: Normal size and attenuation. Gallbladder and biliary system: Normal. Pancreas: Normal. Adrenals: Normal. Kidneys: Normal. GI tract: No obstruction. No ileus or enteritis. The cecum, appendix and colon are normal.. Lymph nodes and mesentery: Normal. Vasculature: Normal. Bladder: Normal. Reproductive organs: The uterus is enlarged. There is mixed attenuating material within the uterus. This measures at least 11 x 8 centimeters. Previous ultrasound evaluation from June of 2016 suggested a molar .. Peritoneum: No free fluid. Musculoskeletal structures: No significant abnormality. Other: None. IMPRESSION: There is no evidence of intestinal urinary tract obstruction. No ileus or enteritis. The appendix is normal. Enlarged uterus with areas containing mixed attenuation measuring up to 11 centimeters. Molar is suspected when compared with previous obstetrical ultrasound from June 27, 2016
--- NOTE | 2016-07-28 08:15 | Discharge Summary ---
Providers - Providers Date of Admission: 07/26/16 17:29 Date of discharge: 07/28/16 Attending physician: SAMAN CAROLINA MD 07/27/16 08:36 Consult to Mental Health [CONS] Routine Reason For Exam: depression Place consult to:: Notified:: JENIFFER Phone number called:: [phone] Was contact made?: Yes If yes, spoke with:: JENIFFER Time called:: 09:36 Comment:: ALEXUS NOTIFIED Primary care physician: INDOOR PLANT TECHNICIAN Hospitalization Reason for admission: vaginal bleed Condition: Stable Hospital course: Patient is a 35-year-old female with recent diagnosis of gestational trophoblastic disease and plan to start chemotherapy presented to the hospital complaining of continued vaginal bleeding with clots with hemoglobin of 7.3 on admission. Also with reports of recurrent nausea with vomiting, and abdominal pain or the patient on admission received 2 units packed red blood cell hemoglobin did not improve much and additional units was given. She was initially admitted 1013 due to communication with psych via an ultrasound coordinator on my reevaluation today and he is in the [employer] [place] Patient reports that she had in the past been very depressed when she found out about condition and at the time had said that she wished she was until she found out that there is actually a treatment option as she does have her 's support. She do so states she is no longer suicidal and that it was just the thought to have that point. She contracted to safety. 1013 is now rescinded. She is to follow with Dr. Welsh she has all the information for chemotherapy which will start tomorrow. 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 GENERAL: The patient appeared well nourished and normally developed otherwise ill appearing. Vital signs as documented. HEAD: No signs of head trauma. EYES: Pupils are equal. Extraocular motions intact. EARS: Hearing grossly intact. MOUTH: Oropharynx is normal. NECK: No adenopathy, no JVD. CHEST: Chest with clear breath sounds bilaterally. No wheezes, rales, or rhonchi. CARDIAC: Regular rate and rhythm. S1 and S2, without murmurs, gallops, or rubs. VASCULAR: No Edema. Peripheral pulses normal and equal in all extremities. ABDOMEN: Soft, without detectable tenderness. No sign of distention. No rebound or guarding, and no masses palpated. Bowel Sounds normal. MUSCULOSKELETAL: Good range of motion of all major joints. Extremities without clubbing, cyanosis or edema. NEUROLOGIC EXAM: Alert and oriented x 3. No focal sensory or strength deficits. Speech normal. Follows commands. PSYCHIATRIC: Mood normal. SKIN: No rash or lesions. - Constitutional Vitals: Temp Pulse Resp BP Pulse Ox 98.2 F 77 12 112/62 99 07/28/16 07:21 07/28/16 07:21 07/28/16 07:21 07/28/16 07:21 07/28/16 07:21 Plan Activity: advance as tolerated, fall precautions Diet: regular Additional Instructions: 1. Follow with Customer Engagement Analyst Oncologist for planned chemotherapy. will start tomorrow 07/28/16 Follow up with: PRIMARY CAREMD [Primary Care Provider] - 3-5 Days Prescriptions: HYDROcodone/APAP 5-325 [[place] 5-325 mg TAB] 1 each PO Q6HR PRN #20 tablet PRN Reason: Pain Promethazine [Phenergan TAB] 25 mg PO Q6HR PRN #30 tab PRN Reason: Nausea
[2016-07-28] MEDS: PROTONIX IV SCH (10:54)
[2016-07-28 13:58] VITALS: BP 125/60
[2016-07-29] MEDS ORDERED: PROTONIX PO SCH (10:00)
== END 2016-07-28 14:35 | disposition home or self-care (01) | DRG 782 ==
LOC: ED 14:19 → 3A 17:29
PROVIDERS: ADMIT Internal Medicine; ATTEND Internal Medicine
PROC: 30233N1 Transfusion of Nonautologous Red Blood Cells into Peripheral Vein, Percutaneous Approach (ICD-10-PCS; principal; 2016-07-26)
DX: O01.9 Hydatidiform mole, unspecified (principal); O08.1 Delayed or excessive hemorrhage following ectopic and molar pregnancy; D64.9 Anemia, unspecified; F32.9 Major depressive disorder, single episode, unspecified
CPT/HCPCS: 36415; 74177; 80048; 84702; 85025; 85027; 86850; 86900; 86901; 86920; 90686; 96361; 96374; 96375; C9113; J1170; J2405; J3010; J7030; J7040; P9016; Q9967

== ENCOUNTER 2017-05-30 21:49 | Emergency (ER) | payer SELFPAY ==
[2017-05-30] MEDS ORDERED: NACL 0.9% 1,000 ML IR ONE (22:17)
[2017-05-30] MEDS ORDERED: XYLOCAINE 1% 20 mL INFILTRATI ONE (22:49)
[2017-05-30] MEDS ORDERED: XYLOCAINE 1% 20 mL ONE (22:49)
[2017-05-30] MEDS ORDERED: MOTRIN PO ONE (22:49)
[2017-05-30] MEDS ORDERED: NORCO 5/325 PO ONE ×2 (22:49→22:52)
[2017-05-30] MEDS ORDERED: NACL 0.9% IR ONE (22:49)
[2017-05-30] MEDS ORDERED: BOOSTRIX IM ONE (22:49)
[2017-05-30] MEDS ORDERED: NORCO 5/325 ONE (22:57)
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
--- NOTE | 2017-05-31 02:40 | Emergency Department Report ---
- General Chief Complaint: Wound/Laceration Stated Complaint: LACERATIONS TO BOTH LEGS Time Seen by Provider: 05/30/17 23:07 Source: patient, el teacher Mode of arrival: Wheelchair Limitations: Language Barrier - History of Present Illness Initial Comments: Patient slipped on wet floor where drinking glasses fell and shattered. She has 4 lacerations, 2 on each leg. No other complaints. -: This evening Location: other (bilateral legs.) Extremity Location: Left: Lower Leg (2 on each leg), Right: Lower Leg Place: home Patient Tetanus UTD: No Context: accidental Associated Symptoms: pain - Related Data Previous Rx's Medication Instructions Recorded Last Taken Type HYDROcodone/APAP 5-325 [Anderson 1 each PO Q6HR PRN #20 tablet 07/28/16 Unknown Rx 5-325 mg TAB] Promethazine [Phenergan TAB] 25 mg PO Q6HR PRN #30 tab 07/28/16 Unknown Rx Cephalexin [Keflex] 500 mg PO TID 10 Days #30 capsule 05/31/17 Unknown Rx traMADol [Ultram 50 MG tab] 50 mg PO Q6HR PRN #10 tablet 05/31/17 Unknown Rx Allergies Allergy/AdvReac Type Severity Reaction Status Date / Time No Known Allergies Allergy Verified 06/27/16 00:38 ED Review of Systems ROS: Stated complaint: LACERATIONS TO BOTH LEGS Other details as noted in HPI Constitutional: denies: chills, fever Eyes: denies: eye pain, eye discharge, vision change ENT: denies: ear pain, throat pain Respiratory: denies: cough, shortness of breath, wheezing Cardiovascular: denies: chest pain, palpitations Endocrine: no symptoms reported Gastrointestinal: denies: abdominal pain, nausea, diarrhea Genitourinary: denies: urgency, dysuria, discharge Musculoskeletal: as per HPI. denies: back pain, joint swelling, arthralgia Skin: denies: rash, lesions Neurological: denies: headache, weakness, paresthesias Psychiatric: denies: anxiety, depression Hematological/Lymphatic: denies: easy bleeding, easy bruising ED Past Medical Hx - Past Medical History Previous Medical History?: No - Surgical History Past Surgical History?: Yes Additional Surgical History: D&C X. - Social History Smoking Status: Never Smoker Substance Use Type: None - Medications Home Medications: Home Medications Medication Instructions Recorded Confirmed Last Taken Type HYDROcodone/APAP 5-325 [Anderson 1 each PO Q6HR PRN #20 tablet 07/28/16 Unknown Rx 5-325 mg TAB] Promethazine [Phenergan TAB] 25 mg PO Q6HR PRN #30 tab 07/28/16 Unknown Rx Cephalexin [Keflex] 500 mg PO TID 10 Days #30 capsule 05/31/17 Unknown Rx traMADol [Ultram 50 MG tab] 50 mg PO Q6HR PRN #10 tablet 05/31/17 Unknown Rx ED Physical Exam - General Limitations: Language Barrier General appearance: alert, in no apparent distress - Head Head exam: Present: atraumatic, normocephalic - Eye Eye exam: Present: normal appearance - ENT ENT exam: Present: mucous membranes moist - Neck Neck exam: Present: normal inspection - Respiratory Respiratory exam: Present: normal lung sounds bilaterally. Absent: respiratory distress - Cardiovascular Cardiovascular Exam: Present: regular rate, normal rhythm. Absent: systolic murmur, diastolic murmur, rubs, gallop - GI/Abdominal GI/Abdominal exam: Present: soft, normal bowel sounds - Extremities Exam Extremities exam: Present: normal inspection, other (full ROM and Neurovascularly intact.) - Back Exam Back exam: Present: normal inspection - Neurological Exam Neurological exam: Present: alert, oriented X3 - Psychiatric Psychiatric exam: Present: normal affect, normal mood - Skin Skin exam: Present: warm, dry, intact, normal color, other (left leg has medial 11 cm deep laceration proximal, 6 cm laceration superficial; right leg has 7 cm right proximal anterior superficially laceration, 7 cm deep laceration distally. ). Absent: rash ED Course Vital Signs 05/30/17 05/30/17 05/30/17 21:35 21:46 22:00 Temperature Pulse Rate Respiratory 12 Rate Blood Pressure 174/84 174/84 Blood Pressure [Left] O2 Sat by Pulse 99 98 Oximetry 05/30/17 05/30/17 05/30/17 22:12 22:16 22:25 Temperature 97.7 F Pulse Rate 18 L Respiratory 12 Rate Blood Pressure 186/96 122/74 Blood Pressure 98/68 [Left] O2 Sat by Pulse 93 96 93 Oximetry 05/30/17 05/30/17 05/30/17 22:30 22:45 23:00 Temperature Pulse Rate Respiratory Rate Blood Pressure 101/65 104/74 107/80 Blood Pressure [Left] O2 Sat by Pulse 95 95 94 Oximetry 05/30/17 05/30/17 05/30/17 23:15 23:30 23:45 Temperature Pulse Rate Respiratory Rate Blood Pressure 121/78 119/81 112/66 Blood Pressure [Left] O2 Sat by Pulse 97 97 98 Oximetry 05/31/17 05/31/17 00:00 00:15 Temperature Pulse Rate Respiratory Rate Blood Pressure 112/66 137/92 Blood Pressure [Left] O2 Sat by Pulse 98 95 Oximetry - I & D Right Lower Anterior Leg Type of Procedure: Complex - Laceration /Wound Repair Left Upper Medial Calf Wound Location: lower extremity Wound's Depth, Shape: superficial, linear Wound Explored: clean Irrigated w/ Saline (ccs): 50 Betadine Prep?: No Anesthesia: 1% Lidocaine Volume Anesthetic (ccs): 10 Wound Debrided: minimal Wound Repaired With: sutures Suture Size/Type: 4:0, 3:0, proline Number of Sutures: 14 (11 simple interrupted and 3 vertical mattress sutures) Layer Closure?: Yes Deep Layer Suture Size/Type: 4:0, chromic Number Deep Layer Sutures: 2 Sterile Dressing Applied?: Yes Left Lower Medial Calf Wound Location: lower extremity Wound Length (cm): 6 Wound's Depth, Shape: superficial, linear Wound Explored: clean Irrigated w/ Saline (ccs): 50 Betadine Prep?: No Anesthesia: 1% Lidocaine Volume Anesthetic (ccs): 10 Wound Debrided: minimal Wound Repaired With: sutures Suture Size/Type: 4:0, proline Number of Sutures: 5 (simple interruppted) Layer Closure?: No Sterile Dressing Applied?: Yes Right Upper Anterior Leg Wound Location: lower extremity Wound Length (cm): 7 Wound's Depth, Shape: superficial, linear Wound Explored: clean Irrigated w/ Saline (ccs): 50 Betadine Prep?: No Anesthesia: 1% Lidocaine Volume Anesthetic (ccs): 10 Wound Debrided: minimal Wound Repaired With: sutures Suture Size/Type: 4:0, proline Number of Sutures: 7 (simple interrupted.) Layer Closure?: No Sterile Dressing Applied?: Yes Right Lower Anterior Leg Wound Location: lower extremity Wound Length (cm): 7 Wound's Depth, Shape: superficial, linear Wound Explored: clean Betadine Prep?: No Anesthesia: 1% Lidocaine Volume Anesthetic (ccs): 10 Wound Debrided: minimal Wound Repaired With: sutures Suture Size/Type: 4:0, proline Number of Sutures: 10 (7 simple interrupted and 3 vertical mattress sutures) Layer Closure?: Yes Deep Layer Suture Size/Type: 4:0, chromic (2 sutures) Sterile Dressing Applied?: Yes ED Medical Decision Making - Radiology Data Radiology results: report reviewed xray bilateral legs. No foreign body seen in leg film - Medical Decision Making Patient with deep lacerations. Repaired per above with cumulative statement. Will do antibiotics with degree of contamination. Patient did get a tetnus shot for being out of date. Critical care attestation.: If time is entered above; I have spent that time in minutes in the direct care of this critically ill patient, excluding procedure time. ED Disposition Clinical Impression: Laceration of leg excluding thigh, with complication Qualifiers: Encounter type: initial encounter Laterality: left Qualified Code(s): S81.812A - Laceration without foreign body, left lower leg, initial encounter Laceration of leg, right Qualifiers: Encounter type: initial encounter Qualified Code(s): S81.811A - Laceration without foreign body, right lower leg, initial encounter Disposition: DC-01 TO HOME OR SELFCARE Is pt being admited?: No Does the pt Need Aspirin: No Condition: Stable Instructions: Laceration (ED) Prescriptions: Cephalexin [Keflex] 500 mg PO TID 10 Days #30 capsule traMADol [Ultram 50 MG tab] 50 mg PO Q6HR PRN #10 tablet PRN Reason: Pain Referrals: PRISCILLA GA MD [Primary Care Provider] - 3-5 Days Time of Disposition: 02:49
[2017-05-31] MEDS ORDERED: BOOSTRIX IM ONE (03:05)
[2017-05-31 03:30] VITALS: BP 98/68
== END 2017-05-31 03:05 | disposition home or self-care (01) ==
LOC: ED 21:49
DX: S81.812A Laceration without foreign body, left lower leg, initial encounter (principal); S81.811A Laceration without foreign body, right lower leg, initial encounter; W01.110A Fall on same level from slipping, tripping and stumbling with subsequent striking against sharp glass, initial encounter; Y93.89 Activity, other specified; Y99.8 Other external cause status; Y92.009 Unspecified place in unspecified non-institutional (private) residence as the place of occurrence of the external cause
CPT/HCPCS: 90471; 90715